=== PATIENT | male | born 1940 | race American Indian/Alaskan Native ===

== ENCOUNTER 2022-04-23 13:25 | Emergency (ER) | payer MEDICARE, OTHER ==
--- NOTE | 2022-04-23 15:08 | Emergency Department Report ---
HPI - General Chief Complaint: Urogenital-Male Time Seen by Provider: 04/23/22 14:38 - HPI HPI: Room 24 The patient is a 1-year-old male present with chief complaint of hematuria. Patient states this morning when urinating he noticed blood and was passing a few clots. Patient admits to slight dysuria. Patient denies history of fever or back pain. Patient denies nausea or vomiting. Patient denies any previous episodes of the same. Patient has a history of an enlarged prostate and states he is on Plavix for history of previous CVA and a recent carotid endarterectomy ED Past Medical Hx - Past Medical History Hx Hypertension: Yes Hx CVA: Yes Hx Diabetes: Yes Additional medical history: BPH - Surgical History Hx Internal Defibrillator: Yes Additional Surgical History: Prostate shaving, carotid endarterectomy (right) - Family History Family history: no significant - Social History Smoking Status: Former Smoker (None since 1974) Substance Use Type: Alcohol (Moderate) ED Review of Systems ROS: Stated complaint: BLOOD IN URINE Other details as noted in HPI Constitutional: denies: fever Eyes: denies: eye pain ENT: denies: throat pain Respiratory: no symptoms reported Cardiovascular: denies: chest pain Endocrine: denies: no symptoms reported Gastrointestinal: denies: abdominal pain, nausea, vomiting Genitourinary: dysuria, hematuria Musculoskeletal: denies: back pain Neurological: denies: headache Physical Exam - Physical Exam Vital Signs: Vital Signs 04/23/22 13:30 Temperature 97.8 F Pulse Rate 100 H Respiratory 18 Rate Blood Pressure 150/90 [Left] O2 Sat by Pulse 97 Oximetry Physical Exam: GENERAL: The patient is well-developed well-nourished male lying on stretcher not appearing to be in acute distress. [] HEENT: Normocephalic. Atraumatic. Extraocular motions are intact. Patient has moist mucous membranes. NECK: Supple. Trachea midline CHEST/LUNGS: Clear to auscultation. There is no respiratory distress noted. HEART/CARDIOVASCULAR: Regular. There is no tachycardia. There is no gallop rub or murmur. ABDOMEN: Abdomen is soft, but mild fullness and pressure in the suprapubic region with palpation. Patient has normal bowel sounds. There is no abdominal distention. SKIN: There is no rash. There is no edema. There is no diaphoresis. NEURO: The patient is awake, alert, and oriented. The patient is cooperative. The patient has no focal neurologic deficits. The patient has normal speech. GCS 15 MUSCULOSKELETAL: There is no evidence of acute injury. ED Course Vital Signs 04/23/22 13:30 Temperature 97.8 F Pulse Rate 100 H Respiratory 18 Rate Blood Pressure 150/90 [Left] O2 Sat by Pulse 97 Oximetry ED Medical Decision Making - Lab Data Result diagrams: 04/23/22 15:43 04/23/22 15:43 Laboratory Tests 04/23/22 04/23/22 04/23/22 15:43 15:43 15:43 WBC 6.3 RBC 4.13 Hgb 12.3 Hct 36.9 MCV 89 MCH 30 MCHC 34 RDW 16.7 H Plt Count 273 Lymph % (Auto) 10.5 L [place] % (Auto) 9.6 H Eos % (Auto) 3.2 Baso % (Auto) 0.8 Lymph # (Auto) 0.7 L [place] # (Auto) 0.6 Eos # (Auto) 0.2 Baso # (Auto) 0.0 Seg Neutrophils % 75.9 H Seg Neutrophils # 4.8 PT 14.1 INR 0.98 APTT 30.9 Sodium 138 Potassium 4.7 Chloride 99.3 Carbon Dioxide 24 Anion Gap 19 BUN 20 Creatinine 1.3 Estimated GFR > 60 BUN/Creatinine Ratio 15 Glucose 127 H Calcium 9.9 Urine Color Urine Turbidity Urine pH Ur Specific [place] Urine Protein Urine Glucose (UA) Urine Ketones Urine Blood Urine Nitrite Urine Bilirubin Urine Urobilinogen Ur Leukocyte Esterase Urine WBC (Auto) Urine RBC (Auto) 04/23/22 16:00 WBC RBC Hgb Hct MCV MCH MCHC RDW Plt Count Lymph % (Auto) [place] % (Auto) Eos % (Auto) Baso % (Auto) Lymph # (Auto) [place] # (Auto) Eos # (Auto) Baso # (Auto) Seg Neutrophils % Seg Neutrophils # PT INR APTT Sodium Potassium Chloride Carbon Dioxide Anion Gap BUN Creatinine Estimated GFR BUN/Creatinine Ratio Glucose Calcium Urine Color Red Urine Turbidity Slightly-cloudy Urine pH 6.0 Ur Specific [place] 1.010 Urine Protein 100 mg/dl Urine Glucose (UA) >=500 Urine Ketones Tr Urine Blood Lg Urine Nitrite Neg Urine Bilirubin Neg Urine Urobilinogen < 2.0 Ur Leukocyte Esterase Sm Urine WBC (Auto) 5.0 Urine RBC (Auto) 31.0 - Radiology Data Radiology results: report reviewed (CT abdomen pelvis), image reviewed (CT abdomen pelvis) [facility] [address] [id number] Cat Scan Report Signed Patient: HAMIDA MCKAY MR#: [id number] 6 : 1940 Acct:[id number] Age/Sex: 81 / M ADM Date: 04/23/22 Loc: ED Attending Dr: Ordering Physician: JASON PABLO MD Date of Service: 04/23/22 Procedure(s): CT abdomen pelvis wo con Accession Number(s): [id number] cc: JASON PABLO MD CT ABDOMEN AND PELVIS WITHOUT CONTRAST INDICATION: Hematuria WO CONTRAST PELVIC PAIN. TECHNIQUE: Axial CT images were obtained through the abdomen and pelvis without IV contrast. All CT scans at this location are performed using CT dose reduction for ALARA by means of automated exposure control. COMPARISON: None available. FINDINGS: LOWER CHEST: Solid 1 cm right lower lobe pulmonary nodule. Chronic parenchymal linear scarring containing calcification left lower lobe. Calcified right lower lobe granuloma Mild tree-in-bud nodularity lateral aspect right middle lobe, lingula and right lower lobe. LIVER: No significant abnormality. GALLBLADDER: Multiple calcified gallstones BILE DUCTS: No significant abnormality. PANCREAS: No significant abnormality. SPLEEN: No significant abnormality. ADRENALS: No significant abnormality. RIGHT KIDNEY and URETER: No significant abnormality. LEFT KIDNEY and URETER: No significant abnormality. STOMACH and SMALL BOWEL: No significant abnormality. COLON: No significant abnormality. APPENDIX: No significant abnormality. PERITONEUM: No free fluid. No free air. No fluid collection. LYMPH NODES: No significant adenopathy. AORTA and ARTERIES: Severe vascular calcifications nonaneurysmal aorta. IVC and VEINS: No significant abnormality. URINARY BLADDER: Moderate amount of heterogeneous dependent hemorrhage/clot within the posterior dependent portion of urinary bladder REPRODUCTIVE ORGANS: Enlarged prostate ADDITIONAL FINDINGS: None. SKELETAL SYSTEM: No significant abnormality. IMPRESSION: 1. Cholelithiasis. 2. Moderate amount of hemorrhage/blood clot posterior aspect urinary bladder. Mass cannot be excluded on this noncontrast study. 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 1 cm right lower lobe pulmonary nodule Single incidental pulmonary nodule(s) in the right lower lobe measuring 10 mm with solid characteristics. Recommendation according to Fleischner Society 2017 Guidelines: Low Risk or High Risk Patient: Consider CT at 3 months, PET/CT, or tissue sampling. Signer Name: Gilbert Alvarez MD Signed: 04/23/2022 4:31 PM Workstation Name: [id number] Transcribed By: TL Dictated By: Gilbert Alvarez MD Electronically Authenticated By: Gilbert Alvarez MD Signed Date/Time: 04/23/22 1631 DD/ 1618 TD/TT: - Differential Diagnosis Urinary retention, bladder mass, BPH, UTI Critical care attestation.: If time is entered above; I have spent that time in minutes in the direct care of this critically ill patient, excluding procedure time. ED Disposition Clinical Impression: Hematuria, Urinary retention Disposition: 01 HOME / SELF CARE / HOMELESS Is pt being admited?: No Does the pt Need Aspirin: No Condition: Stable Instructions: Hematuria, Adult, Acute Urinary Retention, Male Additional Instructions: Return to the emergency department should you develop worsening symptoms, inability to tolerate food or liquids, high fever or any other concerns Referrals: PRIMARY CARE, [Primary Care Provider] - 3-[address] Alonzo, your urologist [place] [Other] - 2-3 Days Time of Disposition: 19:14
[2022-04-23 15:54] LABS: Basophils % (Auto) 0.8 % (0.0-1.8); Eosinophils # (Auto) 0.2 K/mm3 (0.0-0.4); Eosinophils % (Auto) 3.2 % (0.0-4.3); Hematocrit 36.9 % (35.5-45.6); Hemoglobin 12.3 gm/dl (11.8-15.2); Lymphocytes # (Auto) 0.7 K/mm3 (1.2-5.4); Lymphocytes % (Auto) 10.5 % (13.4-35.0); Mean Corpuscular HGB Conc 34 % (32-34); Mean Corpuscular Volume 89 fl (84-94); Monocytes # (Auto) 0.6 K/mm3 (0.0-0.8); Monocytes % (Auto) 9.6 % (0.0-7.3); Platelet Count 273 K/mm3 (140-440); Red Blood Count 4.13 M/mm3 (3.65-5.03); Red Cell Distribution Width 16.7 % (13.2-15.2)
[2022-04-23 16:02] LABS: INR 0.98 (0.87-1.13)
[2022-04-23 16:03] LABS: Partial Thromboplastin Time 30.9 Sec. (24.2-36.6)
[2022-04-23 16:13] LABS: BUN/Creatinine Ratio 15; Blood Urea Nitrogen 20 mg/dL (9-20); Calcium 9.9 mg/dL (8.4-10.2); Hemolysis Index 7
--- NOTE | 2022-04-23 16:35 | Cat Scan Report ---
CT ABDOMEN AND PELVIS WITHOUT CONTRAST INDICATION: Hematuria WO CONTRAST PELVIC PAIN. TECHNIQUE: Axial CT images were obtained through the abdomen and pelvis without IV contrast. All CT scans at [facility] location are performed using CT dose reduction for ALARA by means of automated exposure control. COMPARISON: None available. FINDINGS: LOWER CHEST: Solid 1 cm right lower lobe pulmonary nodule. Chronic parenchymal linear scarring contai kika calcification left lower lobe. Calcified right lower lobe granuloma Mild tree-in-bud nodularity lateral aspect right middle lobe, lingula and right lower lobe. LIVER: No significant abnormality. GALLBLADDER: Multiple calcified gallstones BILE DUCTS: No significant abnormality. PANCREAS: No significant abnormality. SPLEEN: No significant abnormality. ADRENALS: No significant abnormality. RIGHT KIDNEY and URETER: No significant abnormality. LEFT KIDNEY and URETER: No significant abnormality. STOMACH and SMALL BOWEL: No significant abnormality. COLON: No significant abnormality. APPENDIX: No significant abnormality. PERITONEUM: No free fluid. No free air. No fluid collection. LYMPH NODES: No significant adenopathy. AORTA and ARTERIES: Severe vascular calcifications nonaneurysmal aorta. IVC and VEINS: No significant abnormality. URINARY BLADDER: Moderate amount of heterogeneous dependent hemorrhage/clot within the posterior depe ndent portion of urinary bladder REPRODUCTIVE ORGANS: Enlarged prostate ADDITIONAL FINDINGS: None. SKELETAL SYSTEM: No significant abnormality. IMPRESSION: 1. Cholelithiasis. 2. Moderate amount of hemorrhage/blood clot posterior aspect urinary bladder. Mass cannot be excluded on this noncontrast study. 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 1 cm right lower lobe pulmonary nodule Single incidental pulmonary nodule(s) in the right lower lobe measuring 10 mm with solid characterist ics. Recommendation according to Fleischner Society 2017 Guidelines: Low Risk or High Risk Patient: C onsider CT at 3 months, PET/CT, or tissue sampling. Signer Name: Gilbert Alvarez MD Signed: 04/23/2022 4:31 PM Workstation Name: [id number] [id number]
[2022-04-23] MEDS ORDERED: SODIUM CHLORIDE 0.9% IRR 1,000 ML BOTTLE IR ONE (17:00)
[2022-04-23 19:02] LABS: Bilirubin,Urine NEG (Negative); Blood,Urine LG (Negative); Color,Urine Red (Yellow); Urobilinogen,Urine < 2.0 mg/dL (<2.0)
[2022-04-23 19:58] VITALS: BP 146/78
== END 2022-04-23 19:57 | disposition home or self-care (01) ==
LOC: ED 13:25
DX: R31.9 Hematuria, unspecified (principal); R33.9 Retention of urine, unspecified; I10 Essential (primary) hypertension; E11.9 Type 2 diabetes mellitus without complications; Z86.73 Personal history of transient ischemic attack (TIA), and cerebral infarction without residual deficits; Z87.891 Personal history of nicotine dependence
CPT/HCPCS: 36415; 51702; 74176; 80048; 81001; 85025; 85610; 85730; 99284